=== PATIENT | female | born 1970 | race Caucasian/White ===

== ENCOUNTER 2017-11-21 05:04 | Emergency (ER) | payer SELFPAY ==
[~2017-11-21] VITALS: Ht 160 cm; Wt 78.0 kg
[~2017-11-21 05:04] MED LIST: [UNRECOGNIZED DRUG - REMARK]; [UNRECOGNIZED DRUG - REMARK]; [UNRECOGNIZED DRUG - REMARK]
[2017-11-21 05:17] VITALS: BP_SYST 150
[2017-11-21] MEDS ORDERED: NACL 0.9% 1,000 ML IV ONE (05:28)
[2017-11-21] MEDS ORDERED: KETOROLAC TROMETHAMINE 30 MG VIAL IVP ONE (05:30)
[2017-11-21] MEDS ORDERED: ASPIRIN 81 MG TAB.CHEW PO ONE (05:30)
[2017-11-21 05:41] LABS: BILIRUBIN,URINE NEGATIVE (NEGATIVE); BLOOD, URINE NEGATIVE (NEGATIVE); CLARITY/URINE CLEAR (CLEAR); COLOR,URINE YELLOW (YELLOW); GLUCOSE,URINE NEGATIVE (NEGATIVE); KETONES,URINE NEGATIVE (NEGATIVE); LEUKOCYTE ESTERASE ,URINE NEGATIVE (NEGATIVE); NITRITE, URINE POSITIVE (NEGATIVE); PH,URINE 5.5 (5.0-8.0); PROTEIN URINE NEGATIVE (NEGATIVE); UROBILINOGEN,URINE 0.2 (0.2-1.0)
[2017-11-21 05:52] LABS: BACTERIA,URINE MODERATE /HPF (None Seen); RBC,URINE 0-3 /HPF (0-3)
[2017-11-21 06:12] LABS: BASOPHILS % (AUTO) 0.6 % (0.0-2.0); EOSINOPHILS # (AUTO) 0.2 K/uL (0.0-0.4); EOSINOPHILS % (AUTO) 3.1 % (0.0-4.0); HEMATOCRIT 37.5 % (36-48); HEMOGLOBIN 12.9 g/dL (12.0-16.0); LYMPHOCYTES # (AUTO) 1.1 K/uL (1.0-5.5); LYMPHOCYTES % (AUTO) 18.8 % (20.5-51.5); MEAN CORPUSCULAR HEMOGLOBIN 29 pg (27-31); MEAN CORPUSCULAR HGB CONC 34 % (32-36); MEAN CORPUSCULAR VOLUME 85 fL (79.0-98.0); MONOCYTES # (AUTO) 0.4 K/uL (0.0-1.0); MONOCYTES % (AUTO) 6.5 % (1.7-9.3); NEUTROPHILS # (AUTO) 4.2 K/uL (1.8-7.7); PLATELET COUNT (AUTO) 148 K/uL (130-430); RED BLOOD CELL COUNT(AUTO) 4.42 MIL/uL (4.2-6.2); RED CELL DISTRIBUTION WIDTH 15.7 % (9.0-15.0); WHITE BLOOD COUNT (AUTO) 5.9 K/uL (4.8-10.8)
[2017-11-21 06:27] LABS: CREATININE 0.68 mg/dL (0.55-1.30); POTASSIUM 3.7 mmol/L (3.5-5.1)
[2017-11-21 06:33] LABS: TOTAL BILIRUBIN 0.3 mg/dL (0.0-1.0)
[2017-11-21 06:34] LABS: ALBUMIN 3.8 g/dL (3.4-4.8)
[2017-11-21 06:54] LABS: INR 0.9 (0.8-1.2); PROTHROMBIN TIME 9.5 SECS (9.5-12.5)
[2017-11-21 07:10] VITALS: BP_SYST 135
== END 2017-11-21 07:10 | disposition home or self-care (01) ==
LOC: SED 05:04
DX: R07.89 Other chest pain (principal); R00.2 Palpitations; N39.0 Urinary tract infection, site not specified; F41.9 Anxiety disorder, unspecified
CPT/HCPCS: 36415; 71045; 80053; 81000; 82150; 82550; 83690; 84484; 85025; 85610; 85730; 87086; 93005; 96374; 99285; J1885; J7030